=== PATIENT | female | born 2000 | race African-American/Black ===

== ENCOUNTER 2021-12-10 10:53 | Emergency (ER) | payer OTHER ==
[2021-12-10 12:35] LABS: Pregu Control Background? CLEAR/WHITE (CLR/WHITE); Pregu Control Bar Appear? YES (CONTROL BAR); Specific Gravity 1.005 (1.002-1.036)
[2021-12-10 12:36] LABS: Pregnancy Test - Urine (BHCG) Negative (Negative)
== END 2021-12-10 12:59 | disposition home or self-care (01) ==
LOC: CSHERS 10:53
DX: N92.6 Irregular menstruation, unspecified (principal)
CPT/HCPCS: 81025; 99284

== ENCOUNTER 2022-06-04 10:21 | Emergency (ER) | payer OTHER ==
[2022-06-04 10:59] LABS: Bilirubin Neg (Negative); Blood, Urine 10 (Negative); Clarity Clear (Clear); Glucose, Urine (Dipstick) Normal (Negative); Ketone, Urine Negative (Negative); Leukocyte Negative (Negative); Nitrite Negative (Negative); Protein, Urine (Dipstick) Negative (Neg-Trace); Urobilinogen Normal mg/dL (Less than 2)
[2022-06-04 11:02] LABS: #Eosinphils 0.1 10x3/uL (0.0-0.5); #Monocytes 0.8 10x3/uL (0.0-1.1); #Neutrophils 4.4 10x3/uL (1.5-8.4); %Basophils 0.4 % (0.0-2.0); %Eosinophils 1.2 % (0.0-6.0); %Lymphocytes 21.9 % (18.0-47.0); %Monocytes 11.2 % (0.0-10.0); %Neutrophils 64.9 % (40.0-75.0); Hemoglobin 12.5 g/dL (12.0-15.5); Mean Corpuscular HGB CONC 32.7 g/dL (32.0-36.0); Mean Corpuscular Volume 79.6 fl (81.6-98.3); Platelet Count 445 10x3/uL (150-450); RBC Distribution Width 13.8 % (11.5-14.5); White Blood Cell (WBC) Count 6.8 10x3/uL (3.5-10.5)
[2022-06-04 11:12] LABS: Bacteria/HPF Rare-Few HPF (None Seen); RBC/HPF 0-3 HPF (0-3); Squamous Epithelial 0-3 HPF (0-3); WBC/HPF 0-3 HPF (0-3)
== END 2022-06-04 13:24 | disposition home or self-care (01) ==
LOC: CSHERS 10:21
DX: O20.0 Threatened abortion (principal); Z3A.01 Less than 8 weeks gestation of pregnancy
CPT/HCPCS: 36415; 76856; 81003; 81015; 84702; 85025; 86900; 86901

== ENCOUNTER 2022-06-06 09:11 | Emergency (ER) | payer OTHER | END 2022-06-06 11:15 | disposition home or self-care (01) | LOC: CSHERS 09:11 | DX: Z32.01 Encounter for pregnancy test, result positive (principal) | CPT/HCPCS: 36416; 84702; 99283 ==

== ENCOUNTER 2023-01-22 11:01 | Day surgery (SDC) | payer BC, OTHER ==
[2023-01-22] MEDS ORDERED: hydrALAZINE 20 MG/ML VIAL SLOW IVP PRN (13:17)
== END 2023-01-22 14:25 | disposition home health service (06) ==
LOC: CSHLD/OP 11:01
PROVIDERS: ATTEND Obstetrics & Gynecology
DX: O47.03 False labor before 37 completed weeks of gestation, third trimester (principal); Z3A.36 36 weeks gestation of pregnancy; Z79.82 Long term (current) use of aspirin
CPT/HCPCS: 99283

== ENCOUNTER 2023-02-06 06:00 | Inpatient (IN) | payer BC, OTHER ==
[2023-02-06] MEDS ORDERED: Lidocaine 1% (PF) 30 ML VIAL SC PRN (07:03)
[2023-02-06] MEDS ORDERED: hydrALAZINE 20 MG/ML VIAL SLOW IVP PRN ×2 (07:03→18:57)
[2023-02-06] MEDS ORDERED: Carboprost 250 MCG/ML AMP IM PRN (07:03)
[2023-02-06] MEDS ORDERED: Ondansetron PF 4 MG/2 ML Vial IVP PRN ×2 (07:03→13:52)
[2023-02-06] MEDS ORDERED: Methylergonovine 0.2 MG/ML VIAL IM PRN (07:03)
[2023-02-06] MEDS ORDERED: fentaNYL 50 mcg/mL 1 mL Vial SLOW IVP PRN (07:03)
[2023-02-06] MEDS ORDERED: Diphenoxylate HCl/Atropine Tablet PO PRN (07:03)
[2023-02-06] MEDS ORDERED: Misoprostol 200 MCG TAB PR PRN (07:03)
[2023-02-06] MEDS ORDERED: Ibuprofen 800 MG TAB PO PRN (07:03)
[2023-02-06] MEDS ORDERED: Tranexamic Acid 1,000 MG/10 ML VIAL IVP PRN (07:03)
[2023-02-06] MEDS ORDERED: Acetaminophen 500 MG TAB PO PRN (07:03)
[2023-02-06] MEDS ORDERED: Promethazine HCl 25 MG/ML VIAL IM PRN ×3 (07:03→21:51)
[2023-02-06] MEDS ORDERED: NS w/ Oxytocin 30 units 500 ML IV SCH ×3 (07:15)
[2023-02-06 07:54] LABS: Hematocrit 29.5 % (34.9-44.5); Hemoglobin 8.9 g/dL (12.0-15.5); Mean Corpuscular HGB CONC 30.2 g/dL (32.0-36.0); Mean Corpuscular Hemoglobin 21.8 pg (27.0-33.0); Mean Corpuscular Volume 72.1 fl (81.6-98.3); Mean Platelet Volume 11.8 fl (7.4-10.4); Platelet Count 331 10x3/uL (150-450); RBC Distribution Width 15.9 % (11.5-14.5); Red Blood Cell (RBC) Count 4.09 10x6/uL (3.90-5.03); White Blood Cell (WBC) Count 10.7 10x3/uL (3.5-10.5)
[2023-02-06] MEDS ORDERED: ePHEDrine Sulfate 50 MG/10 ML VIAL ONE (08:00)
[2023-02-06] MEDS ORDERED: Bupivacaine 0.25% HCL 30 ML VIAL ONE ×2 (08:00→18:10)
[2023-02-06 08:23] LABS: HBSAg Index 0.19 S/CO (0-0.99); Hep B Surf Ag - L&D Non-Reactive S/CO (NonReactive); Syphilis Antibody Nonreactive (Nonreactive)
[2023-02-06 09:08] VITALS: BMI 35.7
[2023-02-06] MEDS ORDERED: fentaNYL 50 mcg/mL 1 mL Vial ONE ×2 (12:22→20:46)
[2023-02-06] MEDS ORDERED: fentaNYL/Ropivacaine Epidural 100 ML ONE (12:34)
[2023-02-06] MEDS ORDERED: Naloxone HCl 0.4 mg/ml Vial IVP PRN ×3 (13:52→21:51)
[2023-02-06] MEDS ORDERED: Lactated Ringer's 500 ML IV PRN (13:52)
[2023-02-06] MEDS ORDERED: ePHEDrine Sulfate 50 MG/10 ML VIAL SLOW IVP PRN (13:52)
[2023-02-06] MEDS ORDERED: Acetaminophen 325 MG TAB PO PRN (13:52)
[2023-02-06] MEDS ORDERED: diphenhydrAMINE 50 MG/ML VIAL IVP PRN ×2 (13:52→21:51)
[2023-02-06] MEDS ORDERED: Moisturizing Cream (Eucerin) 113 GM JAR TOP PRN ×2 (13:52→21:51)
[2023-02-06] MEDS ORDERED: fentaNYL 2 mcg/Ropivacaine 0.2% Epidural 100 ML CADD EPIDURAL SCH (14:00)
[2023-02-06] MEDS ORDERED: Communication Order-Pharmacy FS SCH ×2 (14:00→22:00)
[2023-02-06] MEDS ORDERED: Chloroprocaine 3% PF 20 ML VIAL ONE (18:02)
[2023-02-06] MEDS ORDERED: Oxytocin 10 UNITS/ML VIAL ONE (18:02)
[2023-02-06] MEDS ORDERED: Ondansetron PF 4 MG/2 ML Vial ONE (18:02)
[2023-02-06] MEDS ORDERED: Dexamethasone 4 mg/ml Vial ONE ×2 (18:02→18:30)
[2023-02-06] MEDS ORDERED: PHENYLEPHRINE-NS 100 MCG/ML 10 ML SYRINGE ONE ×3 (18:02→18:45)
[2023-02-06] MEDS ORDERED: Metoclopramide HCl 10 MG/2 ML VIAL ONE (18:02)
[2023-02-06] MEDS ORDERED: Morphine PF 10 MG/10 ML VIAL ONE (18:08)
[2023-02-06] MEDS ORDERED: Lidocaine 2% MPF 10 ML AMP (For Epidural Use) ONE (18:14)
[2023-02-06] MEDS ORDERED: Azithromycin 500 MG VIAL ONE (18:33)
[2023-02-06] MEDS ORDERED: EPINEPHrine 1 MG/ML AMP ONE (18:46)
[2023-02-06] MEDS ORDERED: Boostrix 0.5 ML (Tdap) VIAL (>/=7 yrs of age) IM ONE (18:57)
[2023-02-06] MEDS ORDERED: Calcium Gluc 4.6 MEQ/10 ML (100 MG/ML) SLOW IVP PRN (21:10)
[2023-02-06] MEDS ORDERED: Lorazepam 2 MG/ML VIAL SLOW IVP PRN (21:10)
[2023-02-06] MEDS ORDERED: Naloxone HCl 0.4 mg/ml Vial IV PRN (21:51)
[2023-02-06] MEDS ORDERED: Promethazine HCl 25 MG SUPP PR PRN (21:51)
[2023-02-06] MEDS: Misoprostol 100 MCG TAB VAG SCH (22:46)
[2023-02-06 22:53] LABS: Hematocrit 29.4 % (34.9-44.5); Mean Corpuscular HGB CONC 30.6 g/dL (32.0-36.0); Mean Corpuscular Volume 71.9 fl (81.6-98.3); Mean Platelet Volume 10.7 fl (7.4-10.4); Platelet Count 313 10x3/uL (150-450); Red Blood Cell (RBC) Count 4.09 10x6/uL (3.90-5.03); White Blood Cell (WBC) Count 18.7 10x3/uL (3.5-10.5)
[2023-02-06 22:54] LABS: MDiff Complete? YES
[2023-02-06 23:00] LABS: ALT (SGPT) 8 U/L (8-55); AST (SGOT) 16 U/L (5-34); Alkaline Phosphatase 248 U/L (40-110); Anion Gap 14 mmol/L (10-20); BUN (Urea Nitrogen) Less than 4 mg/dL (7.0-18.7); Bilirubin, Total 0.3 mg/dL (0.2-1.2); Calc. Creatinine Clearance 198 mL/min (70-130); Calcium 9.1 mg/dL (7.8-10.44); Carbon Dioxide 21 mmol/L (22-29); Chloride 107 mmol/L (98-107); Estimated GFR 131; Globulin 3.4 g/dL (2.4-3.5); Glucose 94 mg/dL (70-105); Potassium 3.8 mmol/L (3.5-5.1); Protein, Total 6.4 g/dL (6.0-8.3); Sodium 138 mmol/L (136-145)
[2023-02-06] MEDS: Docusate 100 MG CAP PO SCH (23:09)
[2023-02-06 23:24] LABS: Creatinine, Urine 32.77 mg/dL (47-110); Protein, Urine Random Quant Less than 10 mg/dL (1-14)
[2023-02-06 23:45] LABS: Band 2 % (5-11); Lymphocytes 2 % (21-51); Monocytes 4 % (0-10); Neutrophil 92 % (42-75)
[2023-02-06 23:54] LABS: Anisocytosis SLIGHT = 6-15 cells (100X) (0-5/hpf); Hypochromia SLIGHT = 6-15 cells (100X) (0-5/hpf); Large Platelets SLIGHT (None Seen); Macrocytosis SLIGHT = 6-15 cells (100X) (0-5/hpf); Microcytosis SLIGHT = 6-15 cells (100X) (0-5/hpf); Polychromasia SLIGHT = 2-3 cells (100X) (0-2/hpf); Schistocytes SLIGHT = 2-5 cells (100X) (0-1/hpf)
[2023-02-06 23:55] LABS: Platelet Adequacy Comment Appears Adequate
[2023-02-06] MEDS: Ketorolac Tromethamine 30 MG/ML VIAL IVP PRN (23:59)
[2023-02-07] MEDS: Misoprostol 100 MCG TAB VAG SCH ×3 (00:09→07:22)
[2023-02-07] MEDS ORDERED: Fentanyl 100 MCG/2 ML VIAL SLOW IVP SCH (01:15)
[2023-02-07] MEDS ORDERED: fentaNYL 50 mcg/mL 1 mL Vial SLOW IVP PRN (01:45)
[2023-02-07 04:47] LABS: Hematocrit 26.2 % (34.9-44.5); Mean Corpuscular HGB CONC 30.5 g/dL (32.0-36.0); Mean Corpuscular Hemoglobin 21.9 pg (27.0-33.0); Mean Corpuscular Volume 71.6 fl (81.6-98.3); Mean Platelet Volume 11.2 fl (7.4-10.4); Platelet Count 300 10x3/uL (150-450); RBC Distribution Width 15.9 % (11.5-14.5); Red Blood Cell (RBC) Count 3.66 10x6/uL (3.90-5.03); White Blood Cell (WBC) Count 21.4 10x3/uL (3.5-10.5)
[2023-02-07] MEDS: Ketorolac Tromethamine 30 MG/ML VIAL IVP PRN (06:14)
[2023-02-07] MEDS: HYDROcodone/Acetaminophen 5/325 mg Tablet PO PRN ×3 (08:13→18:26)
[2023-02-07] MEDS: Ferrous Sulfate 325 MG TAB PO SCH (08:13)
[2023-02-07] MEDS: Docusate 100 MG CAP PO SCH ×2 (08:13→21:10)
[2023-02-07] MEDS: Simethicone Chewable 80 MG TAB PO PRN ×3 (08:13→18:27)
[2023-02-07 08:31] LABS: RapidComm Collect By CBN
[2023-02-07 08:32] LABS: RapidComm Collect By CBN; pH (Cord, venous) 7.173 (7.250-7.350)
[2023-02-07] MEDS ORDERED: HYDROcodone/Acetaminophen 5/325 mg Tablet PO PRN (10:00)
[2023-02-07] MEDS: Ibuprofen 800 MG TAB PO SCH ×2 (13:54→21:09)
[2023-02-07 17:21] LABS: Hematocrit 27.9 % (34.9-44.5); Hemoglobin 8.3 g/dL (12.0-15.5)
[2023-02-07] MEDS ORDERED: Ibuprofen 800 MG TAB PO PRN (21:58)
[2023-02-08] MEDS: Ibuprofen 800 MG TAB PO SCH ×2 (05:47→13:57)
[2023-02-08] MEDS: HYDROcodone/Acetaminophen 5/325 mg Tablet PO PRN ×2 (06:38→13:58)
[2023-02-08] MEDS: Docusate 100 MG CAP PO SCH (09:08)
[2023-02-08] MEDS: Ferrous Sulfate 325 MG TAB PO SCH (09:08)
[2023-02-08] MEDS: Simethicone Chewable 80 MG TAB PO PRN (09:12)
[2023-02-08 11:50] LABS: Hematocrit 23.8 % (34.9-44.5)
[2023-02-08 13:08] VITALS: BP 138/78; TEMP 97.8
[2023-02-08] MEDS ORDERED: Iron, Sodium Ferric Gluconate 125 MG in Sodium Chloride 0.9% 100 ML IVPB SCH (14:00)
== END 2023-02-08 19:11 | disposition home or self-care (01) | DRG 787 ==
LOC: CSHLD 06:19 → CSHPED 21:35
PROVIDERS: ADMIT Obstetrics & Gynecology; ATTEND Obstetrics & Gynecology
PROC: 10D00Z1 Extraction of Products of Conception, Low, Open Approach (ICD-10-PCS; principal; 2023-02-06)
PROC: 10907ZC Drainage of Amniotic Fluid, Therapeutic from Products of Conception, Via Natural or Artificial Opening (ICD-10-PCS; 2023-02-06)
DX: O76 Abnormality in fetal heart rate and rhythm complicating labor and delivery (principal); O90.81 Anemia of the puerperium; D62 Acute posthemorrhagic anemia; Z37.0 Single live birth; Z3A.39 39 weeks gestation of pregnancy
CPT/HCPCS: 36415; 51702; 80053; 82570; 82805; 84156; 85014; 85018; 85027; 86780; 86850; 86900; 86901; 87340; 88307; J0171; J0360; J1100; J1885; J2274; J2401; J2405; J2590; J2765; J2916; J3010; J3490; S0020

== ENCOUNTER 2025-03-21 07:27 | Observation (INO) | payer BC, OTHER ==
[2025-03-21 10:33] VITALS: BMI 40.4
[2025-03-21 13:36] VITALS: BP 125/60; TEMP 98
== END 2025-03-21 13:30 | disposition home or self-care (01) ==
LOC: CSHPP 09:08
PROVIDERS: ADMIT Obstetrics & Gynecology; ATTEND Obstetrics & Gynecology
DX: O03.9 Complete or unspecified spontaneous abortion without complication (principal); Z87.59 Personal history of other complications of pregnancy, childbirth and the puerperium